=== PATIENT | male | born 1935 | race Caucasian/White ===

== ENCOUNTER → 2016-08-24 | Outpatient (CLI) | payer MEDICARE, OTHER ==
[2016-08-24 10:18] LABS: BLOOD GAS BASE EXCESS -1.5 mmol/L (-2-2); BLOOD GAS CARBOXYHEMOGLOBIN 1.5 % (0-4); BLOOD GAS HCO3 23 mmol/L (22-26); BLOOD GAS METHEMOGLOBIN 0.9 % (0-2); BLOOD GAS O2 HGB SATURATION 94 % (90-100); BLOOD GAS OXYGEN CONTENT 18.3 Vol % (12.0-20.0); BLOOD GAS PCO2 36 mmHg (38-42); BLOOD GAS PO2 81 mmHg (61-120); BLOOD GAS TOTAL HGB 13.9 G/DL (12.0-16.0); CRITICAL VALUE NO; DRAW SITE RT RADIAL; FIO2 21 %; NUMBER OF ARTERIAL PUNCTURES 1; TEMP CORR TO 98.6; ULNAR PULSE PRESENT
[2016-08-24 10:19] LABS: STAT NO
--- NOTE | 2016-09-24 10:23 | RSPPFT ---
DATE OF PROCEDURE: 08/24/16 COMMENTS: Spirometry with FVC of 2.3, FEV1 of 1.4, FEV1/FVC ratio at 62%. Slow vital capacity is 47%. TLC is 100%. Diffusion capacity is mildly reduced and normal when corrected for alveolar volume. Room air arterial blood gases show pH of 7.41, PCO2 of 36, PO2 of 81. IMPRESSION: 1. Moderately severe airways obstruction. 2. Non-significant response to acutely inhaled bronchodilator. 3. Adequate oxygenation and alveolar ventilation. 4. No evidence of airways restriction.
== END ==
LOC: HRSP 09:24
PROVIDERS: ATTEND Internal Medicine Sleep Medicine
DX: R06.89 Other abnormalities of breathing (principal)
CPT/HCPCS: 36600; 82805; 94060; 94726; 94729